=== PATIENT | female | born 1990 | race Caucasian/White ===

== ENCOUNTER 2018-06-18 01:35 | Emergency (ER) | payer OTHER ==
[2018-06-18 02:01] VITALS: RESP 18; TEMP 97.9
[2018-06-18 02:50] VITALS: BP 133/80; PULSE 74; O2SAT 98
== END 2018-06-18 02:43 | disposition home or self-care (01) ==
LOC: ED 01:35
DX: K08.89 Other specified disorders of teeth and supporting structures (principal); R68.84 Jaw pain; K04.7 Periapical abscess without sinus
CPT/HCPCS: 99282